=== PATIENT | female | born 1950 | race Caucasian/White ===

== ENCOUNTER 2023-02-16 13:35 | Emergency (ER) | payer BC ==
[~2023-02-16] VITALS: Ht 162.6 cm; Wt 72.1 kg
[2023-02-16 13:52] VITALS: BP_SYST 145
[2023-02-16] MEDS ORDERED: MORPHINE 4 MG INJ. 4 MG/ML VIAL IVP ONE (15:00)
[2023-02-16 15:40] LABS: BASOPHILS % (AUTO) 0.1 % (0.0-2.0); EOSINOPHILS % (AUTO) 0.4 % (0.0-4.0); HEMATOCRIT 44.8 % (36-48); HEMOGLOBIN 14.8 g/dL (12.0-16.0); LYMPHOCYTES # (AUTO) 1.8 K/uL (1.0-5.5); LYMPHOCYTES % (AUTO) 14.2 % (20.5-51.5); MEAN CORPUSCULAR HEMOGLOBIN 30 pg (27-31); MEAN CORPUSCULAR HGB CONC 33 % (32-36); MEAN CORPUSCULAR VOLUME 92 fL (79.0-98.0); MONOCYTES # (AUTO) 0.7 K/uL (0.0-1.0); MONOCYTES % (AUTO) 5.4 % (1.7-9.3); NEUTROPHILS # (AUTO) 10.1 K/uL (1.8-7.7); NEUTROPHILS % (AUTO) 79.9 % (40.0-70.0); PLATELET COUNT (AUTO) 239 K/uL (130-430); RED BLOOD CELL COUNT(AUTO) 4.87 MIL/uL (4.2-6.2); RED CELL DISTRIBUTION WIDTH 13.9 % (9.0-15.0); WHITE BLOOD COUNT (AUTO) 12.7 K/uL (4.8-10.8)
[2023-02-16 15:54] LABS: ANION GAP 9 (5-15); CALCIUM 9.2 mg/dL (8.4-11.0); CHLORIDE 103 mmol/L (98-107); CREATININE 1.08 mg/dL (0.55-1.30); GLUCOSE 108 mg/dL (70-99); UREA NITROGEN, BLOOD 16 mg/dL (8-21)
[2023-02-16 15:58] LABS: GFR AFRICAN AMERICAN 65 mL/min (>90)
[2023-02-16 16:01] LABS: ALANINE AMINOTRANSFERASE 37 U/L (12-78); ASPARTATE AMINOTRANSFERASE 32 U/L (10-37); TOTAL BILIRUBIN 0.6 mg/dL (0.0-1.0)
[2023-02-16 16:11] LABS: BILIRUBIN,URINE NEGATIVE (NEGATIVE); CLARITY/URINE CLEAR (CLEAR); COLOR,URINE YELLOW (YELLOW); GLUCOSE,URINE NEGATIVE (NEGATIVE); KETONES,URINE NEGATIVE (NEGATIVE); LEUKOCYTE ESTERASE ,URINE NEGATIVE (NEGATIVE); NITRITE, URINE NEGATIVE (NEGATIVE); PROTEIN URINE NEGATIVE (NEGATIVE); UROBILINOGEN,URINE 0.2 (0.2-1.0)
[2023-02-16 16:12] LABS: BLOOD, URINE TRACE (NEGATIVE)
[2023-02-16] MEDS ORDERED: IBUP-1969 PO (16:31)
[2023-02-16] MEDS ORDERED: ACET-2634 PO (16:31)
[2023-02-16] MEDS ORDERED: MORP30TA59 PO (16:31)
[2023-02-16 16:40] LABS: BACTERIA,URINE RARE /HPF (None Seen)
[2023-02-16 18:08] VITALS: BP_SYST 132
== END 2023-02-16 18:08 | disposition home or self-care (01) ==
LOC: SED 13:35
DX: S52.001A Unspecified fracture of upper end of right ulna, initial encounter for closed fracture (principal); Z88.5 Allergy status to narcotic agent; I10 Essential (primary) hypertension; Z79.899 Other long term (current) drug therapy; W18.40XA Slipping, tripping and stumbling without falling, unspecified, initial encounter; Y93.89 Activity, other specified; Y92.89 Other specified places as the place of occurrence of the external cause; Y99.8 Other external cause status
CPT/HCPCS: 99285; 70450; 96374; 29105; 71045; 80053; 81000; 85025; 85610; 85730; 86886; 86900; 86901; 84484; 36415; 72170; 73080; 72125; 76376; 93005; J2270

== ENCOUNTER 2023-02-23 06:29 | Day surgery (SDC) | payer BC ==
[~2023-02-23] VITALS: Ht 162.6 cm; Wt 72.1 kg
[~2023-02-23 06:29] MED LIST: ACET-2634 PO; IBUP-1969 PO; MORP30TA59 PO
[2023-02-23] MEDS ORDERED: CEFAZOLIN SOD 2 GM in D5W 50 ML IV ONE (07:00)
[2023-02-23] MEDS ORDERED: ONDANSETRON HCL 4 MG/2 ML VIAL IVP PRN (07:45)
[2023-02-23] MEDS ORDERED: HYDROmorphone 2 MG/ML VIAL IVP PRN (07:45)
[2023-02-23] MEDS ORDERED: HYDROmorphone 1 MG/ML INJ. CARTRIDGE IVP PRN ×2 (07:45)
[2023-02-23] MEDS ORDERED: ACETAMINOPHEN I.V. 1000 MG 100 ML IV ONE (09:33)
[2023-02-23] MEDS ORDERED: TRAM50TA2 PO (10:32)
[2023-02-23 15:04] VITALS: BP_SYST 114
== END 2023-02-23 14:40 | disposition home or self-care (01) ==
LOC: SDS 06:29 → SMU 06:31 → SDS 14:40
PROVIDERS: ATTEND Orthopaedic Surgery Sports Medicine
DX: S52.021A Displaced fracture of olecranon process without intraarticular extension of right ulna, initial encounter for closed fracture (principal); S52.101A Unspecified fracture of upper end of right radius, initial encounter for closed fracture; I10 Essential (primary) hypertension; Z90.49 Acquired absence of other specified parts of digestive tract; Z88.5 Allergy status to narcotic agent; W01.0XXA Fall on same level from slipping, tripping and stumbling without subsequent striking against object, initial encounter; Y93.89 Activity, other specified; Y92.89 Other specified places as the place of occurrence of the external cause; Y99.8 Other external cause status
CPT/HCPCS: 24666; 24685; 24343; 76000; 88305; 88311; J0690; J7060; A4565; C1713 ×7; C1769; J0131; C1776 ×2; 76001

== ENCOUNTER 2023-04-26 17:58 | Emergency (ER) | payer BC ==
[~2023-04-26] VITALS: Ht 162.6 cm; Wt 68.0 kg
[~2023-04-26 17:58] MED LIST changes: +TRAM50TA2 PO
[2023-04-26 18:00] VITALS: BP_SYST 145; PULSE 96; RESP 19; TEMP 98.4; O2SAT 100
[2023-04-26] MEDS ORDERED: CIPR500T5 PO (21:37)
[2023-04-26] MEDS ORDERED: METR-154 PO (21:37)
[2023-04-26] MEDS ORDERED: IBUP-1969 PO (21:38)
[2023-04-26] MEDS ORDERED: ACET-2634 PO (21:38)
[2023-04-26] MEDS ORDERED: CIPROFLOXACIN HCL 500 MG TABLET PO ONE (21:45)
[2023-04-26] MEDS ORDERED: metroNIDAZOLE 500 MG TABLET PO ONE (21:45)
== END 2023-04-26 21:50 | disposition left against medical advice (07) ==
LOC: SED 17:58
DX: R10.31 Right lower quadrant pain (principal); R11.0 Nausea; E11.9 Type 2 diabetes mellitus without complications; I10 Essential (primary) hypertension; Z88.5 Allergy status to narcotic agent; Z79.899 Other long term (current) drug therapy
CPT/HCPCS: 99283